=== PATIENT | female | born 1930 | race Caucasian/White ===

== ENCOUNTER 2017-01-06 07:52 | Observation (INO) | payer OTHER ==
[2017-01-02 17:17] LABS: HEMOGLOBIN 12.4 g/dL (12.0-16.0)
[2017-01-02 17:18] LABS: HEMATOCRIT 38.3 % (36.0-48.0)
[2017-01-02 17:35] LABS: BUN (BLOOD UREA NITROGEN) 14 MG/DL (6-23); CALCIUM, SERUM 9.1 MG/DL (8.5-10.4); CHLORIDE, SERUM 103 MMOL/L (96-112); CO2 (CARBON DIOXIDE) 31 MMOL/L (24-34); CREATININE 0.65 MG/DL (0.55-1.02); GFR AFRICAN AMERICAN 92 ML/MIN (>=60); GFR NON AFRICAN AMERICAN 79 ML/MIN (>=60); GLUCOSE, SERUM 107 MG/DL (60-99); SODIUM, SERUM 142 MMOL/L (135-148)
--- NOTE | ~2017-01-06 | OP ---
Record Of Operation [facility] [address] [place]. [address] NAME: ENDY HEART : [birth year] STATUS : ADM Zahira PAT#: [id number] AGE: 86 ADM/REG DATE : 01/06/17 MR#: [id number] REPORT SERV DATE: 01/06/17 DICTATED BY: EMI THOMPSON DATE: 01/06/17 REPORT STATUS : Draft TRANSCRIBED BY: MODL DATE: 01/06/17 DATE OF PROCEDURE: 01/06/2017 PREOPERATIVE DIAGNOSIS: Zenker's diverticulum POSTOPERATIVE DIAGNOSIS: Zenker's diverticulum. PROCEDURE: 1. Transoral repair of Zenker's diverticulum. 2. Rigid esophagoscopy. SURGEON: Emi Thompson M.D. ANESTHESIA: General. COMPLICATIONS: None. COUNTS: All counts correct following the procedure. BLOOD LOSS: Minimal. PREOPERATIVE INFORMED CONSENT: We discussed the risks and benefits of surgery including, but not limited to bleeding, infection, possible need for revision surgery, possible postoperative fistula resulting in infection, possible , and possible persistent dysphagia despite surgery. She understands the risks and benefits of surgery and consent is on chart. DESCRIPTION OF PROCEDURE: The patient was brought to the operative suite and placed on the operating room table in supine position. General endotracheal anesthesia was initiated without incident. The head and neck were cleaned and prepped in the usual sterile fashion. Following this, moistened gauze was placed on the upper gingiva and then a Dohlman bivalved Zenker's diverticuloscope was placed into the oral cavity. The upper blade was carefully advanced into the right pyriform sinus and then medially there was noted a lot of food and debris were retained in the posterior Zenker's pouch. This was cleaned out systematically with suction and as well as forceps. The upper blade of the diverticuloscope was then advanced into the upper esophagus exposing the cricopharyngeus muscle. The remainder of the pouch was cleaned out completely and irrigated until clear. Once adequate exposure of the alliance party wall between the esophagus and Zenker's diverticulum, a 45 mm endoscopic GAVI stapler with 0 degree Xiong gabriele was used to guide the stapler across the alliance party wall. The stapler was then fired across the alliance party wall and then released, found to have excellent results with division of the cricopharyngeus muscle and marsupialization of the pouch. There was minimal bleeding. The patient was then taken out of suspension, the Dohlman diverticuloscope was removed. The patient was awakened from anesthesia and taken to the recovery room in stable condition. Record Of Operation [place] [id number] [facility] [id number] NAME: ENDY HEART : [birth year] STATUS : ADM Zahira PAT#: [id number] AGE: 86 ADM/REG DATE : 01/06/17 MR#: [id number] REPORT SERV DATE: 01/06/17 DICTATED BY: EMI THOMPSON DATE: 01/06/17 REPORT STATUS : Draft TRANSCRIBED BY: LASHAWN DATE: 01/06/17 ARMANDO/LASHAWN Emi Thompson M.D. / [id number] CC: Mraiana Mesa M.D.
[~2017-01-06 07:52] MED LIST: MULTIPLE VIT; PRINZIDE1 TA1 PO
== END 2017-01-07 18:18 | disposition home or self-care (01) ==
LOC: SDC 07:52 → 5SO 14:14
PROVIDERS: Otolaryngology
PROC: 0CBM8ZZ Excision of Pharynx, Via Natural or Artificial Opening Endoscopic (ICD-10-PCS; principal; 2017-01-06 09:30)
DX: K22.5 Diverticulum of esophagus, acquired (principal); I10 Essential (primary) hypertension; K21.9 Gastro-esophageal reflux disease without esophagitis; Z79.899 Other long term (current) drug therapy; Z98.890 Other specified postprocedural states; Z90.49 Acquired absence of other specified parts of digestive tract
CPT/HCPCS: 74220; 80048; 85014; 85018; 93005; 96374; 96375; 96376; G0378; J0330; J0360; J0690; J2405; J3010